=== PATIENT | male | born 1980 | race Caucasian/White ===

== ENCOUNTER 2020-02-08 20:23 | Emergency (ER) | payer SELFPAY ==
[~2020-02-08] VITALS: Ht 162.6 cm; Wt 79.4 kg
[2020-02-08 20:36] VITALS: BP 141/85
--- NOTE | 2020-02-08 20:47 | NUR ---
PT AMBULATED TO ER BED #9 W/ STEADY GAIT.
--- NOTE | 2020-02-08 20:47 | NUR ---
URINE AT BEDSIDE.
--- NOTE | 2020-02-08 21:29 | NUR ---
URINE DIP DONE
[2020-02-08] MEDS ORDERED: PHENAZOPYRIDINE 100 MG TAB PO ONE (21:40)
--- NOTE | 2020-02-08 21:55 | NUR ---
39 Y/O MALE C/O ABD PAIN THAT RADIATES TO BILATERAL FLANK X 4 DAYS WITH PAIN 10/10; PT STATES WHEN STARTS TO URINATE ABD PAIN OCCURS; DENIES N/V/D; SKIN IS PINK/WARM/DRY; AAOX4 WITH EVEN AND STEADY GAIT; HR EVEN AND REGULAR; PT DENIES ANY FEVER, CP, SOB, OR COUGH AT THIS TIME; VSS; PATIENT POSITIONED FOR COMFORT; HOB ELEVATED; BEDRAILS UP X2; BED DOWN AND LOCKED. PMH: PT DENIES NKA
[2020-02-08 22:08] LABS: APPEARANCE,URINE CLEAR (CLEAR); BILIRUBIN,URINE NEGATIVE (NEGATIVE); BLOOD, URINE NEGATIVE (NEGATIVE); COLOR,URINE YELLOW (YELLOW); LEUKOCYTE ESTERASE ,URINE NEGATIVE (NEGATIVE); NITRITE, URINE NEGATIVE (NEGATIVE); UGLUCOSE NEGATIVE (NEGATIVE)
--- NOTE | 2020-02-08 22:44 | NUR ---
PT RESTING IN BED IN POSITION OF COMFORT, BED LOW AND LOCKED, SIDERAILS UP, VSS, WILL CONTINUE TO MONITOR
[2020-02-08] MEDS ORDERED: NACL 0.9% 1,000 ML IV ONE (23:17)
[2020-02-08] MEDS ORDERED: MORPHINE SULFATE 4 MG/ML SYR IVP ONE (23:20)
[2020-02-08] MEDS ORDERED: ONDANSETRON 4 MG/2 ML VIAL IVP ONE (23:20)
--- NOTE | 2020-02-08 23:28 | NUR ---
LAB AT BEDSIDE.
--- NOTE | 2020-02-08 23:30 | NUR ---
PT RESTING IN BED IN POSITION OF COMFORT, BED LOW AND LOCKED, SIDERAILS UP, VSS, WILL CONTINUE TO MONITOR
[2020-02-08 23:40] LABS: BASOPHILS # (AUTO) 0.1 K/uL (0.00-0.22); BASOPHILS % (AUTO) 0.8 % (0.0-2.0); EOSINOPHILS # (AUTO) 0.2 K/uL (0-0.4); EOSINOPHILS % (AUTO) 2.2 % (0.0-4.0); HEMATOCRIT 46.6 % (36-52); HEMOGLOBIN 15.5 g/dL (12.0-18.0); LYMPHOCYTES # (AUTO) 2.5 K/uL (2.0-11.5); LYMPHOCYTES % (AUTO) 37.1 % (20.5-51.1); MEAN CORPUSCULAR HEMOGLOBIN 30 pg (27-31); MEAN CORPUSCULAR HGB CONC 33 g/dL (33-37); MEAN CORPUSCULAR VOLUME 88.5 fL (80-94); MONOCYTES # (AUTO) 0.4 K/uL (0.8-1.0); MONOCYTES % (AUTO) 5.8 % (1.7-9.3); NEUTROPHILS # (AUTO) 3.7 K/uL (1.8-7.7); NEUTROPHILS % (AUTO) 54.1 % (42.2-75.2); PLATELET COUNT (AUTO) 293 K/uL (140-450); RED BLOOD CELL COUNT(AUTO) 5.27 MIL/uL (4.20-6.10); RED CELL DISTRIBUTION WIDTH 14.2 % (11.6-13.7); WHITE BLOOD COUNT (AUTO) 6.8 K/uL (4.8-10.8)
--- NOTE | 2020-02-08 23:50 | NUR ---
PT TAKEN TO CT VIA W/C.
[2020-02-08 23:54] LABS: ALBUMIN 4.4 g/dL (3.4-5.0); ANION GAP 11.3 (8-16); POTASSIUM 4.3 mmol/L (3.5-5.1); TOTAL BILIRUBIN 0.3 mg/dL (0.0-1.0)
--- NOTE | 2020-02-09 01:00 | NUR ---
Patient discharged with v/s stable. Written and verbal after care instructions given and explained. Patient alert, oriented and verbalized understanding of instructions. Ambulatory with steady gait. All questions addressed prior to discharge. ID band removed. Patient advised to follow up with PMD. Rx of PHENAZOPYRIDINE HYDROCHLORIDE/NAPROXEN given. Patient educated on indication of medication including possible reaction and side effects. Opportunity to ask questions provided and answered.
[2020-02-09 01:02] VITALS: BP 140/84
[2020-02-12 06:07] LABS: CHLAMYDIA TRACHOMATIS AMP DNA Negative (Negative)
== END 2020-02-09 01:00 | disposition home or self-care (01) ==
LOC: MED 20:23
DX: R10.30 Lower abdominal pain, unspecified (principal); K29.70 Gastritis, unspecified, without bleeding
CPT/HCPCS: 36415; 74176; 80053; 81003; 83690; 85025; 87491; 96361; 96374; 96375; 99284; J2270; J2405; J7030

== ENCOUNTER 2020-06-03 19:17 | Emergency (ER) | payer SELFPAY ==
[~2020-06-03] VITALS: Ht 165.1 cm; Wt 81.6 kg
[2020-06-03 19:28] VITALS: BP 113/65
--- NOTE | 2020-06-03 19:32 | NUR ---
triaged and to Chair A
--- NOTE | 2020-06-03 19:32 | NUR ---
Dr. Duong with pt for MSE.
--- NOTE | 2020-06-03 19:35 | NUR ---
see complete assessment.
[2020-06-03] MEDS ORDERED: DICYCLOMINE HCL LIQUID 20 MG, ALUMINUM HYD/MAG/SIMETHICONE 30 ML, LIDOCAINE VISCOUS 2% ... PO ONE ×3 (19:50)
[2020-06-03] MEDS ORDERED: SIMETHICONE 40 MG/0.6 ML PO ONE (19:50)
[2020-06-03] MEDS ORDERED: ALUMINUM HYD/MAG/SIMETHICONE 30 ML UDC ONE (19:57)
[2020-06-03] MEDS ORDERED: LIDOCAINE VISCOUS 2% 20 ML UDC ONE (19:57)
[2020-06-03] MEDS ORDERED: DICYCLOMINE HCL LIQUID 10 MG/5 ML UDC ONE (19:58)
[2020-06-03 20:19] LABS: BASOPHILS # (AUTO) 0.1 K/uL (0.00-0.22); BASOPHILS % (AUTO) 0.8 % (0.0-2.0); EOSINOPHILS # (AUTO) 0.1 K/uL (0-0.4); EOSINOPHILS % (AUTO) 1.6 % (0.0-4.0); HEMATOCRIT 45.2 % (36-52); HEMOGLOBIN 15.2 g/dL (12.0-18.0); LYMPHOCYTES # (AUTO) 2.1 K/uL (2.0-11.5); MEAN CORPUSCULAR HEMOGLOBIN 30 pg (27-31); MEAN CORPUSCULAR HGB CONC 34 g/dL (33-37); MONOCYTES # (AUTO) 0.4 K/uL (0.8-1.0); MONOCYTES % (AUTO) 5.8 % (1.7-9.3); NEUTROPHILS % (AUTO) 59.8 % (42.2-75.2); PLATELET COUNT (AUTO) 278 K/uL (140-450); RED BLOOD CELL COUNT(AUTO) 5.13 MIL/uL (4.20-6.10); RED CELL DISTRIBUTION WIDTH 14.4 % (11.6-13.7); WHITE BLOOD COUNT (AUTO) 6.6 K/uL (4.8-10.8)
[2020-06-03 20:35] LABS: ALBUMIN 4.3 g/dL (3.4-5.0); ANION GAP 12.6 (8-16); CARBON DIOXIDE 29.1 mmol/L (21-32); CREATININE 1.1 mg/dL (0.6-1.3); POTASSIUM 3.7 mmol/L (3.5-5.1); TOTAL BILIRUBIN 0.2 mg/dL (0.0-1.0)
--- NOTE | 2020-06-03 20:50 | NUR ---
ALL RESULTS BACK AND NOTED BY ERMD AND FOR D/C
[2020-06-03 21:05] VITALS: BP 113/65
== END 2020-06-03 21:05 | disposition home or self-care (01) ==
LOC: MED 19:17
DX: K29.70 Gastritis, unspecified, without bleeding (principal); R11.2 Nausea with vomiting, unspecified; R42 Dizziness and giddiness
CPT/HCPCS: 36415; 80053; 83690; 85025; 99283

== ENCOUNTER 2020-08-29 22:38 | Emergency (ER) | payer SELFPAY ==
[~2020-08-29] VITALS: Ht 170.2 cm; Wt 78.5 kg
[2020-08-29 22:43] VITALS: BP 159/77
[2020-08-29] MEDS ORDERED: HYDROXYZINE HYDROCHLORIDE 25 MG TAB PO STA (23:31)
[2020-08-29] MEDS ORDERED: ALUMINUM HYD/MAG/SIMETHICONE 30 ML UDC PO ONE (23:35)
[2020-08-29] MEDS ORDERED: ASPIRIN 81 MG TAB.CHEW PO ONE (23:45)
[2020-08-29 23:51] LABS: BASOPHILS % (AUTO) 0.6 % (0.0-2.0); EOSINOPHILS # (AUTO) 0.2 K/uL (0-0.4); EOSINOPHILS % (AUTO) 2.6 % (0.0-4.0); HEMATOCRIT 41.9 % (36-52); LYMPHOCYTES # (AUTO) 2.4 K/uL (2.0-11.5); LYMPHOCYTES % (AUTO) 31.8 % (20.5-51.1); MEAN CORPUSCULAR HEMOGLOBIN 30 pg (27-31); MEAN CORPUSCULAR HGB CONC 34 g/dL (33-37); MEAN CORPUSCULAR VOLUME 88.3 fL (80-94); MONOCYTES # (AUTO) 0.6 K/uL (0.8-1.0); MONOCYTES % (AUTO) 8.2 % (1.7-9.3); NEUTROPHILS # (AUTO) 4.4 K/uL (1.8-7.7); NEUTROPHILS % (AUTO) 56.8 % (42.2-75.2); PLATELET COUNT (AUTO) 302 K/uL (140-450); RED BLOOD CELL COUNT(AUTO) 4.74 MIL/uL (4.20-6.10); RED CELL DISTRIBUTION WIDTH 14.6 % (11.6-13.7); WHITE BLOOD COUNT (AUTO) 7.7 K/uL (4.8-10.8)
--- NOTE | 2020-08-29 23:52 | NUR ---
PT TAKEN TO XRAY
--- NOTE | 2020-08-29 23:55 | NUR ---
PT TAKEN TO BED 7
--- NOTE | 2020-08-29 23:57 | NUR ---
PT RETURN FROM XRAY TO ER BED 7
--- NOTE | 2020-08-29 23:57 | NUR ---
Alex patricio in ED - 08/29/20 at 2357 by KEN PT RETURN FROM CT TO ER BED 7
[2020-08-30 00:07] LABS: ANION GAP 11.4 (8-16); CARBON DIOXIDE 30.4 mmol/L (21-32); CREATININE 0.9 mg/dL (0.6-1.3); POTASSIUM 3.8 mmol/L (3.5-5.1); TOTAL BILIRUBIN 0.3 mg/dL (0.0-1.0)
--- NOTE | 2020-08-30 00:09 | NUR ---
40 Y/O M BIB SELF FROM HOME, PATIENT PRESENTS TO ED WITH ABD, CHEST, ALL OVER BODY PAIN AND BILATERAL LEG PAIN. PT STATES THE PAIN HAS BEEN GOING ON FOR THE PAST FEW MONTHS AND HAS BEEN FEELING NERVOUS AND ANXIOUS. DENIES N/V/D; SKIN IS PINK/WARM/DRY; AAOX4 WITH EVEN AND STEADY GAIT; LUNGS CLEAR BL; HR EVEN AND REGULAR; PT DENIES ANY FEVER, SOB, OR COUGH AT THIS TIME; PATIENT STATES PAIN OF 10/10 AT THIS TIME IN CHEST; VSS; PATIENT POSITIONED FOR COMFORT; HOB ELEVATED; BEDRAILS UP X2; BED DOWN. ER MD MADE AWARE OF PT STATUS. PMH: NONE. ISA
--- NOTE | 2020-08-30 00:39 | NUR ---
PULSE OXIMETRY, BP, AND CARDIAC MONITORING FOR CHEST PAIN DONE. PT IN GOWN.
[2020-08-30] MEDS ORDERED: LORazepam 1 MG TAB PO ONE (00:50)
--- NOTE | 2020-08-30 02:15 | NUR ---
EKG PERFORMED AT BEDSIDE. EKG READS SINUS RHYTHM @ 75
--- NOTE | 2020-08-30 02:15 | NUR ---
EMT IN ROOM DOING SECOND ORDERED EKG.
[2020-08-30] MEDS ORDERED: FAMO-90 PO (03:35)
[2020-08-30] MEDS ORDERED: MAG355OR2 PO (03:35)
[2020-08-30] MEDS ORDERED: HYDR-636 PO (03:35)
[2020-08-30 03:48] VITALS: BP 113/70
--- NOTE | 2020-08-30 03:48 | NUR ---
Patient discharged with v/s stable. Written and verbal after care instructions given and explained. Patient alert, oriented and verbalized understanding of instructions. Ambulatory with steady gait. All questions addressed prior to discharge. ID band removed. Patient advised to follow up with PMD. Rx of FAMOTIDINE, HYDROXYZINE, MAG HYDROX given. Patient educated on indication of medication including possible reaction and side effects. Opportunity to ask questions provided and answered.
== END 2020-08-30 03:48 | disposition home or self-care (01) ==
LOC: MED 22:38
DX: K29.70 Gastritis, unspecified, without bleeding (principal); F41.9 Anxiety disorder, unspecified; I45.10 Unspecified right bundle-branch block; Z79.899 Other long term (current) drug therapy
CPT/HCPCS: 36415; 71045; 80053; 83690; 84443; 84484; 85025; 93005; 99284

== ENCOUNTER 2021-07-25 19:37 | Emergency (ER) | payer SELFPAY ==
[~2021-07-25] VITALS: Ht 172.7 cm; Wt 72.6 kg
[~2021-07-25 19:37] MED LIST: FAMO-90 PO; HYDR-636 PO; MAG355OR2 PO
[2021-07-25 19:41] VITALS: BP 137/82
--- NOTE | 2021-07-25 19:55 | NUR ---
41 YO M BIB SELF WITH C/C OF 10/10 BURNING CHEST PAIN THAT RADS TO BILAT CHEST AND BACK [id number]. PT REPORTS GENERAL BODY PAIN. STATES HE HAS NOT BEEN DX WITH ANXIETY BUT FEELS THAT IS WHAT HE HAS. REPORTS CHILLS AND NAUSEA. DENIES V/D, FEVER. HX:GASTRITIS NKA
[2021-07-25] MEDS ORDERED: ATA25 PO (20:01)
--- NOTE | 2021-07-25 20:03 | NUR ---
NO NURSING INTERVENTIONS NEEDED.
[2021-07-25 20:07] VITALS: BP 133/66
== END 2021-07-25 20:07 | disposition home or self-care (01) ==
LOC: MED 19:37
DX: F41.9 Anxiety disorder, unspecified (principal); R07.9 Chest pain, unspecified; R51.9 Headache, unspecified; R20.2 Paresthesia of skin; Z79.899 Other long term (current) drug therapy
CPT/HCPCS: 99283

== ENCOUNTER 2024-02-02 08:20 | Emergency (ER) | payer SELFPAY ==
[~2024-02-02] VITALS: Ht 162.6 cm; Wt 81.6 kg
[~2024-02-02 08:20] MED LIST changes: +ATA25 PO
[2024-02-02 08:37] VITALS: BP 129/73; PULSE 61; RESP 18; TEMP 98.3; O2SAT 100
[2024-02-02 09:16] LABS: BASOPHILS % (AUTO) 0.5 % (0.0-2.0); EOSINOPHILS % (AUTO) 0.7 % (0.0-4.0); HEMATOCRIT 44.2 % (36-52); HEMOGLOBIN 14.6 g/dL (12.0-18.0); LYMPHOCYTES # (AUTO) 2.3 K/uL (2.0-11.5); MEAN CORPUSCULAR HEMOGLOBIN 29 pg (27-31); MEAN CORPUSCULAR HGB CONC 33 g/dL (33-37); MEAN CORPUSCULAR VOLUME 88.9 fL (80-94); MONOCYTES # (AUTO) 0.4 K/uL (0.8-1.0); MONOCYTES % (AUTO) 6.3 % (1.7-9.3); NEUTROPHILS # (AUTO) 3.4 K/uL (1.8-7.7); NEUTROPHILS % (AUTO) 54.5 % (42.2-75.2); PLATELET COUNT (AUTO) 261 K/uL (140-450); RED BLOOD CELL COUNT(AUTO) 4.97 MIL/uL (4.20-6.10); RED CELL DISTRIBUTION WIDTH 14.8 % (11.6-13.7); WHITE BLOOD COUNT (AUTO) 6.2 K/uL (4.8-10.8)
[2024-02-02 09:24] LABS: CALCIUM 9.3 mg/dL (8.5-10.1); CREATININE 0.9 mg/dL (0.6-1.3)
[2024-02-02] MEDS: FAMOTIDINE 20 MG TAB PO ONE (09:29)
[2024-02-02] MEDS: KETOROLAC 30 MG/ML VIAL IM ONE (09:30)
[2024-02-02 10:30] VITALS: BP 128/66; PULSE 59; RESP 15; TEMP 97.7; O2SAT 100
[2024-02-02] MEDS ORDERED: FAMO-92 PO (10:39)
[2024-02-02] MEDS ORDERED: ACET-1194 PO (10:39)
== END 2024-02-02 10:50 | disposition home or self-care (01) ==
LOC: MED 08:20
DX: R07.89 Other chest pain (principal); I45.10 Unspecified right bundle-branch block; F41.9 Anxiety disorder, unspecified; K21.9 Gastro-esophageal reflux disease without esophagitis; E78.5 Hyperlipidemia, unspecified; Z79.899 Other long term (current) drug therapy
CPT/HCPCS: 36415; 71045; 80048; 84484; 85025; 93005; 96372; 99285; J1885